=== PATIENT | female | born 1970 | race African-American/Black ===

== ENCOUNTER 2017-05-29 14:16 | Emergency (ER) | payer OTHER ==
[2017-05-29 14:42] VITALS: BP 124/87; PULSE 120; RESP 24; TEMP 97.8; O2SAT 98
[2017-05-29] MEDS ORDERED: TRIA1SPR6 EACH NARE (17:46)
[2017-05-29] MEDS ORDERED: SIME180C (17:46)
[2017-05-29 18:00] VITALS: BP 124/79; PULSE 70; RESP 16; O2SAT 98
[2017-05-29] MEDS ORDERED: SODIUM CHLOR 0.9% 1000 ML INJ 1,000 ML IV SCH (18:04)
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
[2017-05-29] MEDS ORDERED: SODIUM CHLORIDE 0.9% FLUSH 10 ML FLUSH IVF PRN (18:15)
[2017-05-29] MEDS ORDERED: KETOROLAC TROMETHAMINE 30 MG/ML (IVP) VIAL IV PUSH ONE (18:15)
[2017-05-29 18:34] VITALS: RESP 16; O2SAT 98
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
[2017-05-29 18:47] LABS: AUTOMATED NEUTROPHIL # 6.1 TH/MM3 (1.8-7.7); BASOPHIL # 0.1 TH/MM3 (0-0.2); BASOPHIL % 0.6 % (0.0-2.0); EOSINOPHIL # 0.1 TH/MM3 (0-0.4); EOSINOPHIL % 1.5 % (0.0-4.0); HEMATOCRIT 36.1 % (35.0-46.0); HEMO FLAGS DIFF FINAL; LYMPHOCYTE # 2.1 TH/MM3 (1.0-4.8); MEAN CELL VOLUME 87.3 FL (80.0-100.0); MEAN CORPUSCULAR HEMOGLOBIN 27.4 PG (27.0-34.0); MEAN CORPUSCULAR HGB CONC 31.4 % (32.0-36.0); MONO % 5.1 % (0.0-8.0); NEUT % 68.8 % (16.0-70.0); PLATELET COUNT 304 TH/MM3 (150-450); RED BLOOD COUNT 4.13 MIL/MM3 (4.00-5.30); RED CELL DISTRIBUTION WIDTH 14.9 % (11.6-17.2); WHITE BLOOD COUNT 8.9 TH/MM3 (4.0-11.0)
[2017-05-29 18:58] LABS: APTT (PATIENT) 25.2 SEC (24.3-30.1); PROTHROMBIN TIME - PATIENT 10.6 SEC (9.8-11.6)
[2017-05-29 19:17] VITALS: BP 113/72; PULSE 65; RESP 18; O2SAT 100
[2017-05-29] MEDS ORDERED: IOHEXOL 350 MG/ML 10 ML VIAL (for RAD DIAG) IV ONE (19:41)
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
== END 2017-05-29 20:48 | disposition home or self-care (01) ==
LOC: NEPD 14:16
DX: S16.1XXA Strain of muscle, fascia and tendon at neck level, initial encounter (principal); N83.201 Unspecified ovarian cyst, right side; J21.9 Acute bronchiolitis, unspecified; R51 Headache; M54.2 Cervicalgia; M13.80 Other specified arthritis, unspecified site; V43.52XA Car driver injured in collision with other type car in traffic accident, initial encounter
CPT/HCPCS: 70450; 71010; 72125; 74177; 85025; 85610; 85730; 96361; 96374; 99285; J1885; J7030; Q9967